=== PATIENT | male | born 1995 | race Caucasian/White ===

== ENCOUNTER 2019-09-05 16:12 | Emergency (ER) | payer SELFPAY ==
[2019-09-05] MEDS ORDERED: OXYCODONE-ACETAMINOPHEN 5-325 MG TABLET PO ONE ×2 (16:49→20:11)
[2019-09-05 17:37] LABS: ABSOLUTE LYMPHOCYTES (AUTO) 1.5 10^3/uL (0.5-4.7); ABSOLUTE MONOCYTES (AUTO) 0.6 10^3/uL (0.1-1.4); ABSOLUTE NEUT (AUTO) 4.9 10^3/uL (1.7-8.2); BASOPHILS % (AUTO) 0.4 % (0-2); EOSINOPHILS % (AUTO) 0.5 % (0-6); HEMATOCRIT 45.1 % (37.9-51.0); HEMOGLOBIN 15.7 g/dL (13.5-17.0); LYMPHOCYTES % (AUTO) 20.9 % (13-45); MEAN CORPUSCULAR HEMOGLOBIN 30.3 pg (27.0-33.4); MEAN CORPUSCULAR HGB CONC 34.9 g/dL (32.0-36.0); MEAN CORPUSCULAR VOLUME 87 fl (80-97); MONOCYTES % (AUTO) 8.6 % (3-13); PLATELET COUNT 278 10^3/uL (150-450); RED BLOOD COUNT 5.19 10^6/uL (4.35-5.55); RED CELL DISTRIBUTION WIDTH 13.3 % (11.5-14.0); SEGMENTED NEUTROPHILS % (AUTO) 69.6 % (42-78); TOTAL CELLS COUNTED % (AUTO) 100 %; WHITE BLOOD COUNT 7.1 10^3/uL (4.0-10.5)
--- NOTE | 2019-09-05 17:40 | RADIOLOGY REPORT (SQ) ---
EXAM DESCRIPTION: FINGER LEFT IMAGES COMPLETED DATE/TIME: 09/05/2019 4:17 pm REASON FOR STUDY: left right finger metal projectile went though finger COMPARISON: None. . NUMBER OF VIEWS: Three views. TECHNIQUE: AP, lateral, and oblique images acquired of the left 4th digit LIMITATIONS: None. FINDINGS: MINERALIZATION: Normal. BONES: There is an acute comminuted fracture of the distal tuft 4th digit distal phalanx. Mild displ acement of the distal fracture fragment. SOFT TISSUES: Large laceration at the distal 4th digit. No radiopaque foreign body. OTHER: No other significant finding. IMPRESSION: Large laceration with comminuted fracture of the distal tuft 4th digit distal phalanx. TECHNICAL DOCUMENTATION: JOB ID: [id number] 2010 [employer]- All Rights Reserved Reading location - IP/workstation name: [email or web address]
[2019-09-05 18:07] LABS: ALBUMIN 4.8 g/dL (3.5-5.0); ALKALINE PHOSPHATASE 73 U/L (38-126); ANION GAP 8 (5-19); ASPARTATE AMINO TRANSFERASE 28 U/L (17-59); BILIRUBIN,TOTAL 0.8 mg/dL (0.2-1.3); BLOOD UREA NITROGEN 10 mg/dL (7-20); CALCIUM 9.7 mg/dL (8.4-10.2); CARBON DIOXIDE 27 mmol/L (22-30); CHLORIDE 102 mmol/L (98-107); GLUCOSE 103 mg/dL (75-110); POTASSIUM 4.6 mmol/L (3.6-5.0); TOTAL PROTEIN 8.2 g/dL (6.3-8.2)
[2019-09-05] MEDS ORDERED: LIDOCAINE 1% INJ-PF (10 MG/ML) 30 ML SDV INJ ONE (18:35)
[2019-09-05] MEDS ORDERED: CEFAZOLIN 2 GM/D5W RTU 2 GM/50 ML RTUPB IV ONE (18:36)
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
[2019-09-05] MEDS ORDERED: HYDROCODONE/ACETAMINOPHEN 5-325 MG (6 TAB/ER DISP) PO PRN (21:11)
[2019-09-05 22:18] VITALS: BP 153/89
== END 2019-09-05 22:18 | disposition home or self-care (01) ==
LOC: ER 16:12
DX: S62.635B Displaced fracture of distal phalanx of left ring finger, initial encounter for open fracture (principal); W22.8XXA Striking against or struck by other objects, initial encounter
CPT/HCPCS: 99283; 96365; 36415; 85025; 80053; 73140; 64450; J3490; J0690

== ENCOUNTER 2020-01-01 16:39 | Emergency (ER) | payer OTHER ==
[2020-01-01 17:11] VITALS: BP 126/67
[2020-01-01] MEDS ORDERED: KETOROLAC TROMETHAMINE 60 MG/2 ML SDV IM ONE (17:44)
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
== END 2020-01-01 19:54 | disposition home or self-care (01) ==
LOC: ER 16:39
DX: M54.9 Dorsalgia, unspecified (principal); M54.5 Low back pain; V87.7XXA Person injured in collision between other specified motor vehicles (traffic), initial encounter
CPT/HCPCS: 99284; 96372; 72110; J1885